=== PATIENT | male | born 1995 | race Caucasian/White ===

== ENCOUNTER 2024-05-07 06:29 | Day surgery (SDC) | payer BC ==
[2024-05-07] MEDS ORDERED: Lactated Ringers 1,000 ML IV SCH (07:00)
[2024-05-07] MEDS ORDERED: ceFAZolin 2 GM in Sodium Chloride 0.9% 100 ML IV ONE (07:00)
[2024-05-07] MEDS: Sodium Chloride 0.9% 1,000 ML IV SCH (07:07)
[2024-05-07] MEDS ORDERED: Neostigmine Methylsulfate 10 MG/10 ML MDV ONE (07:23)
[2024-05-07] MEDS ORDERED: Glycopyrrolate 0.2 MG/ML 5 ML MDV ONE (07:23)
[2024-05-07] MEDS ORDERED: Rocuronium 50 MG/5 ML Vial ONE ×2 (07:23→09:28)
[2024-05-07] MEDS ORDERED: Ondansetron 4 MG/2 ML SDV ONE (07:23)
[2024-05-07] MEDS ORDERED: Dexamethasone 4 MG/ML SDV ONE (07:23)
[2024-05-07] MEDS ORDERED: fentaNYL 250 MCG/5 ML SDV ONE (07:23)
[2024-05-07] MEDS ORDERED: Propofol 200 MG/20 ML SDV ONE (07:23)
[2024-05-07] MEDS: ceFAZolin 2 GM in Premix Bag 1 BAG IV ONE (07:41)
[2024-05-07 07:42] LABS: HEMATOCRIT 42.4 % (38.4-49.7); HEMOGLOBIN 15.2 g/dL (12.9-16.9); MEAN CORPUSCULAR HEMOGLOBIN 29.5 pg (31.6-35.5); MEAN CORPUSCULAR HGB CONC 35.8 g/dL (31.6-35.5); MEAN CORPUSCULAR VOLUME 82.3 fL (81.4-99.0); RED BLOOD CELL COUNT 5.15 M/uL (4.14-5.76); WHITE BLOOD CELL COUNT,WBC 7.4 K/uL (3.2-11.0)
[2024-05-07] MEDS: metroNIDAZOLE/Normal Saline 500 MG in Premix Bag 1 BAG IV ONE (07:42)
[2024-05-07 08:03] LABS: A/G RATIO 1.1 (1.2-2.2); ALANINE AMINOTRANSFERASE,ALT 25 U/L (12-78); ALBUMIN 4.1 g/dL (3.4-5.0); ALKALINE PHOSPHATASE 97 U/L (46-116); ANION GAP 10.1 mmol/L (5.0-14.0); ASPARTATE AMNIOTRANSFERASE,AST 14 U/L (15-37); BILIRUBIN TOTAL 0.6 mg/dL (0.2-1.0); BLOOD UREA NITROGEN,BUN 8 mg/dL (7-18); CALCIUM 9.2 mg/dL (8.5-10.1); CARBON DIOXIDE,CO2 29 mmol/L (21-32); CHLORIDE,CL 103 mmol/L (100-108); CREATININE 1.1 mg/dL (0.8-1.3); EST CRCL DRUG DOSING (CG) 109.74 mL/min; ESTIMATED GFR 94 mL/min (>60); GLUCOSE RANDOM 104 mg/dL (74-106); PROTEIN TOTAL,TP 7.7 g/dL (6.4-8.2); SODIUM,NA 142 mmol/L (140-148)
[2024-05-07] MEDS: Bupivacaine 0.5%/EPINEPHrine 1:200,000 50 ML MDV ONE (08:50)
[2024-05-07] MEDS ORDERED: Ketorolac 30 MG/ML SDV ONE (09:02)
[2024-05-07] MEDS ORDERED: fentaNYL 100 MCG/2 ML SDV ONE ×2 (09:40→09:51)
[2024-05-07] MEDS: Acetaminophen/HYDROcodone 325-5 MG Tab PO PRN (11:56)
== END 2024-05-07 12:39 | disposition home or self-care (01) ==
LOC: JP.SDS 06:29
PROVIDERS: ATTEND Surgery
DX: K40.90 Unilateral inguinal hernia, without obstruction or gangrene, not specified as recurrent (principal); D17.6 Benign lipomatous neoplasm of spermatic cord
CPT/HCPCS: 36415; 80053; 85027; A9270-GY; C1781; J0171; J0690; J1100; J1596; J1836; J1885; J2405; J2704; J2710; J2795; J3010; J3490; J7030